=== PATIENT | female | born 1960 | race Caucasian/White ===

== ENCOUNTER 2024-11-29 12:12 | Emergency (ER) | payer MEDICARE ==
[~2024-11-29] VITALS: Ht 167.6 cm; Wt 72.7 kg
[2024-11-29] MEDS ORDERED: CEPH-558 PO (14:36)
[2024-11-29 14:48] VITALS: BP 115/71; PULSE 85; RESP 18; TEMP 97.9; O2SAT 95
== END 2024-11-29 18:09 | disposition home or self-care (01) ==
LOC: EMS 12:12
DX: S83.92XA Sprain of unspecified site of left knee, initial encounter (principal); L30.9 Dermatitis, unspecified; Z90.710 Acquired absence of both cervix and uterus; X58.XXXA Exposure to other specified factors, initial encounter; Y93.89 Activity, other specified; Y92.89 Other specified places as the place of occurrence of the external cause; Y99.8 Other external cause status
CPT/HCPCS: 99283